=== PATIENT | male | born 1980 | race Caucasian/White ===

== ENCOUNTER 2017-01-10 11:24 | Emergency (ER) | payer OTHER ==
[2017-01-10 12:44] VITALS: BP 129/84
--- NOTE | 2017-01-10 12:51 | UC ---
Truncal Trauma HPI - HPI Summary HPI Summary: patient fell on to the rail of a bed, injuring the left rib cage, pain is sharp and has a hard tome taking DEEP breaths, SOB on exertion. happened 2 days ago - History Of Current Complaint Chief Complaint: UCUpperExtremity Stated Complaint: LEFT SIDE RIB PAIN Time Seen by Provider: 01/10/17 12:45 Hx Obtained From: Patient Onset/Duration: Sudden Onset, Lasting Days Severity Initially: Severe Severity Currently: Moderate Mechanism Of Injury: Direct Blow, Fall From A Standing Position Aggravating Factor(s): Movement, Deep Breathing, Cough Alleviating factor(s): Nothing Associated Signs And Symptoms: Positive: SOB - Allergies/Home Medications Allergies/Adverse Reactions: Allergies Allergy/AdvReac Type Severity Reaction Status Date / Time No Known Allergies Allergy Verified 01/10/17 12:44 Home Medications: Home Medications Ibuprofen TAB* [Advil TAB*] 400 mg PO Q6H PRN 01/10/17 [History Confirmed ] PMH/Surg Hx/FS Hx/Imm Hx Previously Healthy: Yes - Surgical History Surgical History: None - Family History Known Family History: Negative: Cardiac Disease, Hypertension - Social History Alcohol Use: Daily Substance Use Type: None Smoking Status (MU): Never Smoked Tobacco Review of Systems Constitutional: Negative Skin: Negative Eyes: Negative ENT: Negative Respiratory: Shortness Of Breath Cardiovascular: Negative Gastrointestinal: Negative Genitourinary: Negative Motor: Negative Neurovascular: Negative Musculoskeletal: Arthralgia, Edema - lower ant left ribs, Myalgia Neurological: Negative Psychological: Negative All Other Systems Reviewed And Are Negative: Yes Physical Exam Triage Information Reviewed: Yes Appearance: Well-Nourished, Ill-Appearing, Pain Distress Vital Signs: Initial Vital Signs Temp 98.3 F 01/10/17 12:38 Pulse 64 01/10/17 12:38 Resp 14 01/10/17 12:38 BP 129/84 01/10/17 12:38 Pulse Ox 100 01/10/17 12:38 Vital Signs Reviewed: Yes Eye Exam: Normal Eyes: Positive: Conjunctiva Clear ENT Exam: Normal ENT: Positive: Hearing grossly normal, Pharynx normal, TMs normal Dental Exam: Normal Neck exam: Normal Neck: Positive: Supple, Nontender, No Lymphadenopathy Respiratory Exam: Normal Respiratory: Positive: Lungs clear, Normal breath sounds, Decreased breath sounds - due to inability to take a deep breath Cardiovascular Exam: Normal Cardiovascular: Positive: RRR, No Murmur, Pulses Normal Abdominal Exam: Normal Abdomen Description: Positive: Nontender, No Organomegaly, Soft Bowel Sounds: Positive: Present Musculoskeletal Exam: Normal Musculoskeletal: Positive: Strength Intact, ROM Limited @ - with twisting of trunk Neurological Exam: Normal Neurological: Positive: Alert, Muscle Tone Normal Psychological Exam: Normal Skin Exam: Normal Truncal Trauma Course/Dx - Course Course Of Treatment: hx obtained, exam performed, meds reviewed, xray obtained, neg fro fracture. - Differential Dx/Diagnosis Differential Diagnosis/HQI/PQRI: Abdominal Wall Contusion, Chest Wall Contusion , Spleen Trauma, Rib Fracture Provider Diagnoses: rib contusion, left Discharge - Discharge Plan Condition: Stable Disposition: HOME Patient Education Materials: Rib Contusion (ED) Additional Instructions: Aleve or ibuprofen for pain and swelling Heat, Stretch and keep moving. Take deep breaths throughout the day.
--- NOTE | 2017-01-10 13:06 | RAD ---
INDICATION: Left low anterior rib pain after a fall COMPARISON: None. TECHNIQUE: 3 views of the left ribs were obtained. FINDINGS: An external BB marker is noted overlying the left flank. No fracture or significant focal osseous abnormality is seen. No pneumothorax is apparent. IMPRESSION: NO EVIDENCE FOR FRACTURE, IF THE PATIENT'S SYMPTOMS PERSIST RECOMMEND FOLLOW-UP IMAGING.
== END 2017-01-10 13:38 | disposition home or self-care (01) ==
LOC: UCCORT 11:24
DX: S20.20XA Contusion of thorax, unspecified, initial encounter (principal); W18.09XA Striking against other object with subsequent fall, initial encounter; Y93.9 Activity, unspecified; Y92.9 Unspecified place or not applicable
CPT/HCPCS: 99201; G0463